=== PATIENT | female | born 1990 | race Caucasian/White ===

== ENCOUNTER 2025-04-11 15:37 | Outpatient (REF) | payer BC, SELFPAY ==
[2025-04-11 18:02] LABS: Abs Immature Grans 0.02 10^3/uL; HCT 31.7 %; HGB 10.4 g/dL; Immature Grans % 0.2 %; MCH 31.0 pg; MCHC 32.8 %; MCV 95 fL; MPV 10.4 fL; Platelet Count 177 10^3/uL; RBC 3.35 10^6/uL; RDW 11.7 %; RDW-SD 39.7 fL; WBC 9.47 10^3/uL
== END 2025-04-11 15:38 | disposition home or self-care (01) ==
LOC: NCHCN 15:37
PROVIDERS: Visit Provider Midwife
DX: Z3A.28 28 weeks gestation of pregnancy (principal); Z34.82 Encounter for supervision of other normal pregnancy, second trimester
CPT/HCPCS: 85025